=== PATIENT | male | born 1945 | race Caucasian/White ===

== ENCOUNTER 2016-10-27 06:35 | Inpatient (IN) | payer OTHER ==
[2016-10-21 11:31] VITALS: BMI 31.0
--- NOTE | 2016-10-21 12:19 | PAT Medication Instructions ---
Service Date Oct 21, 2016. Current Home Medication List Alfuzosin Hcl (Uroxatral), 10 MG PO QPM Aspirin (Aspirin Ec), 81 MG PO QPM Atorvastatin (Lipitor), 20 MG PO QPM Coenzyme Q10 (Ubidecarenone) (Co Q10), 2 CAP PO QAM Fish Oil (Laurel-3), 1 TAB PO BID Levothyroxine Sodium (Levothyroxine Sodium), 1 TAB PO QPM Lisinopril (Zestril), 20 MG PO QPM Metoprolol Tartrate (Lopressor) (Lopressor), 12.5 MGPE PO BID Multivitamin (Multivitamin), 1 TAB PO QAM Ocuvite Preservision (Ocuvite Preservision), 1 TAB PO BID Tramadol (Ultram), 50 MG PO Q8H PRN for Pain Medication Instructions For Your Scheduled Surgery - Hold the following medications as of 10/21/16: Coenzyme Q10 (Ubidecarenone) (Co Q10), 2 CAP PO QAM Fish Oil (Laurel-3), 1 TAB PO BID - Hold the following medications 24 hours prior to surgery: Lisinopril (Zestril), 20 MG PO QPM - Hold the following medications the morning of surgery: Multivitamin (Multivitamin), 1 TAB PO QAM Ocuvite Preservision (Ocuvite Preservision), 1 TAB PO BID - Take the following medications the morning of surgery with a sip of water OTHERWISE NOTHING TO EAT OR DRINK AFTER MIDNIGHT: Tramadol (Ultram), 50 MG PO Q8H PRN for Pain (may take if needed up to 4 hours prior to surgery) Metoprolol Tartrate (Lopressor) (Lopressor), 12.5 MGPE PO BID - Take the following medications as scheduled the night before surgery: Alfuzosin Hcl (Uroxatral), 10 MG PO QPM Aspirin (Aspirin Ec), 81 MG PO QPM Atorvastatin (Lipitor), 20 MG PO QPM Levothyroxine Sodium (Levothyroxine Sodium), 1 TAB PO QPM Tramadol (Ultram), 50 MG PO Q8H PRN for Pain Metoprolol Tartrate (Lopressor) (Lopressor), 12.5 MGPE PO BID Ocuvite Preservision (Ocuvite Preservision), 1 TAB PO BID If you have any questions please call us at [phone] or [phone] or [phone]
--- NOTE | 2016-10-21 12:58 | DIAGNOSTIC IMAGING REPORT ---
CHEST 2 VIEWS ROUTINE CLINICAL HISTORY: 71 years-old Male presenting with preoperative evaluation. TECHNIQUE: PA and lateral views of the chest were obtained. COMPARISON: 06/06/2012. FINDINGS: Cardiomediastinal silhouette normal. Mild atherosclerosis of the aortic arch noted. No focal infiltrate. No pleural effusion or pneumothorax. Sclerosis of the lateral aspect of the right humeral head may be degenerative in etiology and was likely present on the prior exam. IMPRESSION: 1. No acute cardiopulmonary disease. Electronically signed by: Shaun Hester 10/21/2016 12:57 PM Dictated Date/Time: 10/21/2016 12:55 PM
[2016-10-21 13:36] LABS: BASO % 0.2 %; BASO ABS # 0.02 K/uL (0-0.2); COMPLETE YES; EOS % 2.1 %; HEMATOCRIT 46.3 % (42-52); IG% 0.4 %; LYMPH % 21.2 %; LYMPH ABS # 1.81 K/uL (1.2-3.4); MEAN CELL VOLUME 91.1 fL (80-100); MEAN CORPUSCULAR HEMOGLOBIN 29.9 pg (25-34); MEAN CORPUSCULAR HGB CONC 32.8 g/dl (32-36); MEAN PLATELET VOLUME 10.5 fL (7.4-10.4); MONO % 9.7 %; NEUT % 66.4 %; PLATELET COUNT 225 K/uL (130-400); RED BLOOD COUNT 5.08 M/uL (4.7-6.1); WHITE BLOOD COUNT 8.55 K/uL (4.8-10.8)
[2016-10-21 13:49] LABS: PARTIAL THROMBOPLASTIN RATIO 1.1; PROTHROMBIN TIME (PATIENT) 10.4 SECONDS (9.0-12.0)
[2016-10-21 13:55] LABS: ESTIMATED AVERAGE GLUCOSE 128 mg/dl; HA1C FLAG Normal (Normal)
[2016-10-21 13:56] LABS: URINE APPEARANCE CLEAR (CLEAR); URINE BILIRUBIN NEG (NEG); URINE COLOR YELLOW; URINE NITRITE NEG (NEG); URINE SPECIFIC GRAVITY 1.011 (1.000-1.030); UROBILINOGEN NEG (NEG); ZZUR CULT IF INDIC CLEAN CATCH NO
[2016-10-21 14:01] LABS: MANUAL MICROSCOPIC REQUIRED? NO; REVIEW REQ? NO
[2016-10-21 14:19] LABS: BUN/CREATININE RATIO 15.1 (10-20); CALCIUM 9.5 mg/dl (8.5-10.1); CREATININE 1.4 mg/dl (0.60-1.40); POTASSIUM 4.9 mmol/L (3.5-5.1)
--- NOTE | 2016-10-26 20:51 | History and Physical ---
History & Physical Date & Time of Service: Oct 26, 2016 at 20:45 Chief Complaint: Left Shoulder Rotator Cuff Arthropathy Primary Care Physician: Mario Lozano III, M.D. History of Present Illness Source: patient Past Medical/Surgical History Medical Problems: (1) Benign hypertension Status: Chronic (2) Chronic kidney disease stage 3 Status: Chronic (3) Generalized osteoarthritis Status: Chronic Social History Smoking Status: Former Smoker Alcohol Use: none Marital Status: Immunizations History of Influenza Vaccine: Yes Influenza Vaccine Date: Feb 04, 2012 History of Tetanus Vaccine?: No History of Pneumococcal: No History of Hepatitis B Vaccine: Yes Multi-Drug Resistant Organisms History of MDRO: No Allergies Coded Allergies: Morphine (Verified Allergy, Unknown, 10/21/16) Home Medications Scheduled Alfuzosin Hcl (Uroxatral), 10 MG PO QPM Aspirin (Aspirin Ec), 81 MG PO QPM Atorvastatin (Lipitor), 20 MG PO QPM Coenzyme Q10 (Ubidecarenone) (Co Q10), 2 CAP PO QAM Fish Oil ([place]-3), 1 TAB PO BID Levothyroxine Sodium (Levothyroxine Sodium), 1 TAB PO QPM Lisinopril (Zestril), 20 MG PO QPM Metoprolol Tartrate (Lopressor) (Lopressor), 12.5 MGPE PO BID Multivitamin (Multivitamin), 1 TAB PO QAM Ocuvite Preservision (Ocuvite Preservision), 1 TAB PO BID Scheduled PRN Tramadol (Ultram), 50 MG PO Q8H PRN for Pain Review of Systems Musculoskeletal: + joint pain, + muscle pain Physical Exam General Appearance: WD/WN, no apparent distress Head: normocephalic, atraumatic Eyes: normal inspection, PERRL, EOMI Respiratory/Chest: chest non-tender, lungs clear Cardiovascular: regular rate, rhythm Abdomen/GI: normal bowel sounds, non tender left shoulder decreased ROM, and 3/5 strength. + GH OA. Impression Assessment and Plan Left shoulder RC arthrapathy Advanced Directives Existing Living Will: No Existing Power of Deep Fat Cook Fry: No
--- NOTE | 2016-10-26 21:21 | History and Physical ---
History & Physical Date & Time of Service: Oct 26, 2016 at 21:17 Chief Complaint: Left Shoulder Rotator Cuff Arthropathy Primary Care Physician: Mario Lozano III, M.D. History of Present Illness Source: patient Chronic left shoulder pain, Hx of RCR repair in the past that has failed. MRI confirmed. Social History Smoking Status: Former Smoker Alcohol Use: none Marital Status: Immunizations History of Influenza Vaccine: Yes Influenza Vaccine Date: Feb 04, 2012 History of Tetanus Vaccine?: No History of Pneumococcal: No History of Hepatitis B Vaccine: Yes Multi-Drug Resistant Organisms History of MDRO: No Allergies Coded Allergies: Morphine (Verified Allergy, Unknown, 10/21/16) Home Medications Scheduled Alfuzosin Hcl (Uroxatral), 10 MG PO QPM Aspirin (Aspirin Ec), 81 MG PO QPM Atorvastatin (Lipitor), 20 MG PO QPM Coenzyme Q10 (Ubidecarenone) (Co Q10), 2 CAP PO QAM Fish Oil ([place]-3), 1 TAB PO BID Levothyroxine Sodium (Levothyroxine Sodium), 1 TAB PO QPM Lisinopril (Zestril), 20 MG PO QPM Metoprolol Tartrate (Lopressor) (Lopressor), 12.5 MGPE PO BID Multivitamin (Multivitamin), 1 TAB PO QAM Ocuvite Preservision (Ocuvite Preservision), 1 TAB PO BID Scheduled PRN Tramadol (Ultram), 50 MG PO Q8H PRN for Pain Review of Systems Musculoskeletal: + joint pain, + muscle pain Physical Exam General Appearance: WD/WN, no apparent distress Head: normocephalic, atraumatic Eyes: normal inspection, PERRL, EOMI Respiratory/Chest: chest non-tender, lungs clear Cardiovascular: regular rate, rhythm Abdomen/GI: normal bowel sounds, non tender left shoulder decreased ROM, and 3/5 strength. + GH OA. Impression Assessment and Plan Left shoulder RC arthrapathy Medical Problems: (1) Benign hypertension Status: Chronic (2) Chronic kidney disease stage 3 Status: Chronic (3) Generalized osteoarthritis Status: Chronic Advanced Directives Existing Living Will: No Existing Power of Commander Internal Affairs: No
[~2016-10-27] VITALS: Ht 180.3 cm; Wt 102.9 kg
[~2016-10-27 06:35] MED LIST: ACETAMINOPHEN 500 MG TAB PO SCH; ALFU10TA30 PO; ASPI81TA28 PO; ATOR-22 PO; CEFAZOLIN 2000 MG/60 ML D5W 60 ML IV SCH; COEN1CAP28 PO; CeleBREX 200 MG CAP PO SCH; DEXAMETHASONE 4 MG TAB PO SCH; FAMOTIDINE 20 MG TAB PO SCH; GABAPENTIN 300 MG CAP PO SCH; LACTATED RINGER'S 1000ML 1,000 ML IV SCH; LEVO125T4 PO; LISI-725 PO; METO25TA56 PO; METOCLOPRAMIDE HCL 10 MG TAB PO SCH; MULT-190 PO; MULT-506 PO; OMEG10007 PO; TRAM-10 PO
[2016-10-27] MEDS ORDERED: ROPIVACAINE 0.5% 5 MG/ML 30 ML VIAL ONE (07:01)
[2016-10-27] MEDS ORDERED: BUPIVACAINE/EPINEPHRINE 0.25% 1:200,000 30 ML VIAL ONE (07:01)
[2016-10-27] MEDS ORDERED: CLONIDINE HCL 100 MCG/ML SYRINGE ONE (07:02)
[2016-10-27 07:13] VITALS: BP 169/101; PULSE 58; TEMP 36.7; O2SAT 96; Ht 180.3 cm; Wt 102.9 kg
[2016-10-27] MEDS: LACTATED RINGER'S 1000ML IV SCH ×2 (08:02→11:10)
[2016-10-27] MEDS ORDERED: FLUMAZENIL 0.1 MG/1 ML 10 ML VIAL IV PRN (08:15)
[2016-10-27] MEDS ORDERED: MEPERIDINE HCL 25 MG/ML CARP IV PRN (08:15)
[2016-10-27] MEDS ORDERED: PHENYLEPHRINE 100MCG/ML 5ML SYR IV PRN (08:15)
[2016-10-27] MEDS ORDERED: FENTANYL CITRATE INJ 50 MCG/1 ML 2 ML VIAL IV PRN (08:15)
[2016-10-27] MEDS ORDERED: EpHEDrine SULFATE INJ 50 MG/ML AMP IV PRN (08:15)
[2016-10-27] MEDS ORDERED: LABETALOL HCL IV 5 MG/ML 20ML IV PRN (08:15)
[2016-10-27] MEDS ORDERED: ONDANSETRON INJ 2 MG/ML 2 ML VIAL IV PRN ×2 (08:15→14:15)
[2016-10-27] MEDS ORDERED: HYDROmorphone INJ 2 MG/ML SYR/VIAL IV PRN (08:15)
[2016-10-27] MEDS ORDERED: NALOXONE HCL 0.4 MG/1 ML VIAL/CARP IV PRN ×2 (08:15→14:15)
[2016-10-27] MEDS ORDERED: ATROPINE SULFATE 0.1 MG/ML 5ML SYR IV PRN (08:15)
[2016-10-27] MEDS ORDERED: NEOSTIGMINE METHYLSULFATE 5 MG/5 ML SYR ONE (08:27)
[2016-10-27] MEDS ORDERED: ROCURONIUM BROMIDE 10 MG/ML 5 ML VIAL ONE ×2 (08:27→16:06)
[2016-10-27] MEDS ORDERED: PROPOFOL IV EMULSION 10 MG/ML 20 ML VIAL IV ONE (08:27)
[2016-10-27] MEDS ORDERED: MIDAZOLAM HCL 1 MG/ML 2ML VIAL ONE (08:27)
[2016-10-27] MEDS ORDERED: ONDANSETRON INJ 2 MG/ML 2 ML VIAL ONE (08:27)
[2016-10-27] MEDS ORDERED: GLYCOPYRROLATE INJ 0.2 MG/ML VIAL ONE (08:27)
[2016-10-27] MEDS ORDERED: LIDOCAINE HCL 2% 2 ML VIAL (20MG/ML) ONE (08:27)
[2016-10-27] MEDS ORDERED: DEXAMETHASONE SOD INJ 4 MG/ML VIAL ONE (08:27)
[2016-10-27] MEDS ORDERED: FENTANYL CITRATE INJ 50 MCG/1 ML 2 ML VIAL ONE (08:28)
--- NOTE | 2016-10-27 10:26 | History & Physical Bridge Note ---
H&P Re-Evaluation Bridge Note: I have examined the patient, reviewed the History & Physical and in the interval since the performance of the History & Physical I have noted the following changes of clinical significance: No changes noted, plan is for left reversed total shoulder arthroplasty for chronic rotator cuff tear arthropathy and non repairable rotator cuff tear.
[2016-10-27] MEDS ORDERED: BACITRACIN 50000 UNIT VIAL ONE (11:21)
[2016-10-27] MEDS ORDERED: EpHEDrine SULFATE INJ 50 MG/ML AMP ONE ×2 (12:02→17:04)
[2016-10-27] MEDS ORDERED: PHENYLEPHRINE HCL INJ 10 MG/ML VIAL ONE (12:02)
[2016-10-27] MEDS ORDERED: BISACODYL 10 MG SUPP PR PRN (14:15)
[2016-10-27] MEDS ORDERED: MAGNESIUM HYDROXIDE SUSP 30 ML UDC PO PRN (14:15)
[2016-10-27] MEDS ORDERED: ZOLPIDEM TARTRATE 5 MG TAB PO PRN (14:15)
[2016-10-27] MEDS ORDERED: SOD PHOSPHATE/SOD BIPHOSPHATE ENEMA 132 ML BTL PR PRN (14:15)
--- NOTE | 2016-10-27 14:33 | [facility] Operative Report ---
Operative Report Operative Date Oct 27, 2016. 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 Edilberto Frank Enterprise Infrastructure Architect Surgeon(s) Kristofer Smith PA-C Estimated Blood Loss 50ml Findings Chronic non repairable rotator cuff tear, prior rotator cuff repair with some of the anterior and posterior aspect of the repair being intact still, anterior dislocation biceps tendon under upper subscapularis tendon tear with marked proximal tendinopathy of the biceps tendon. Specimens A: Left humeral head Drains 2 Hemovac Complication(s) None Disposition Recovery Room / PACU Indications Chronic left shoulder pain rotator cuff arthropathy failed conservative management Description of Procedure The patient was taken to the operating room and anesthetized under regional block and general anesthetic. The patient was positioned on the operating table in a 30 beach chair position with a towel roll under the medial border of the left scapula. The arm was draped free to be able to manipulate the shoulder as needed. The left upper extremity was prepped and draped in usual sterile fashion. Exam demonstrated full passive range of motion old scars healed from prior arthroscopic surgery. An anterior deltopectoral approach was performed. A longitudinal incision was made in the deltopectoral interval. The skin was incised. Subcutaneous flaps were elevated off the fascia. The cephalic vein was dissected out and retracted lateral with the deltoid. The clavipectoral fascia was divided at the lateral margin of the conjoined tendon and extended up to the CA ligament. The following findings were noted: The rotator cuff was torn in the mid section with a strip of anterior supraspinatus tendon still intact and about 50% of the infraspinatus was intact as well as the teres minor. The remainder of the rotator cuff tear was non repairable. There was some arthropathy of the superior head of the humerus where it articulated with the subacromial space. There was still good articular surface on the glenoid and humeral head surfaces otherwise there was an upper subscapularis tendon tear partial tear of the deep fibers with anterior dislocation of the biceps tendon under that tear and marked widening of the biceps and tendinopathy of the biceps in the proximal section up to its attachment at the superior glenoid.. The upper centimeter of the pectoralis was released for inferior exposure. The biceps tendon was tenodesed to the pectoralis tendon with #2 FiberWire. The proximal biceps was resected. The subscapularis tendon was taken down off the lesser tuberosity using a subperiosteal dissection. A #1 Vicryl traction suture was placed into the free end of the subscapularis tendon and capsule. The subscapular muscle fibers were split longitudinally at the level of the circumflex vessels. The circumflex vessels were identified and tied off with silk ties and divided laterally. A Kitner elevator was used to free up the inferior fibers of the subscapularis off of the capsule. The axillary nerve was identified with a tug test and protected with a blunt Lulu retractor between the nerve and the capsule. The capsule was divided with Ravi scissors down to the glenoid released off the anterior glenoid and the rotator interval was released to meet the capsular release and a 360 release of the subscapularis was accomplished. A Fukuda retractor was placed into the joint retracting the humeral head posterior. Glenoid findings demonstrated some degenerative changes of the labrum but good articular surface and no deformity of the glenoid. The labrum and biceps tendon was resected. An anterior- inferior and posterior inferior capsular release were performed with electrocautery and a Pandey elevator on bone with the nerve protected inferiorly by the retractor. Attention was then taken to the humeral preparation. The cutting guide was placed into the humeral head. It was positioned at 20 of retroversion. Oscillating saw was used to resect the humeral head giving the cut above the level of the posterior rotator cuff insertion site. The humerus was then retracted posterior to the glenoid. The glenoid was sized for a 29 mm baseplate using the Tornier reverse shoulder system.. The guide for the baseplate was positioned in a 10 inferior tilt and the central drill hole was made. The reamer for the 29 mm baseplate was used. The central drill was widened for the peg. The 29 mm hydroxyapatite-coated baseplate was impacted into position. The plate was transfixed with superior and inferior locking screws and anterior and posterior compression screws with stable fixation. The fan reamer was used for the 36 mm millimeter glenoid sphere with +2 mm inferior offset. After irrigation the glenoid sphere was impacted onto the baseplate and the screw was tightened. Fixation was assessed is stable. Humeral preparation was then performed. A centralizing awl was used followed by broaches up to a size 4 stem. The 4 stem had the appropriate fit and fill although distally we could've gone to a 5 but proximally metaphyseal bone was dense only excepting a 4.. A high offset +0 reversed tray was then placed. It was rotated into appropriate position. A trial reduction was performed. A 6 mm trial insert demonstrated good stability and no shuck. The trials were removed. 3 drill holes are made into the harder bone in the bicipital groove area and 3 #5 FiberWire sutures were placed transosseously. The canal was irrigated with antibiotic solution with bacitracin. The final component was assembled. The final component was +6 mm 36 diameter reversed insert +0 high offset baseplate and size 4B long stem.. This was then impacted into the humerus with a tight press-fit. It was reduced to the glenoid sphere. Stability was verified. Subscapularis was repaired with the #5 FiberWire sutures using Giorgi-Rosalio suture technique. Lateral row soft tissue repair was performed with #2 FiberWire [id number] sutures. The pectoralis was repaired with #2 FiberWire [id number] sutures reinforcing the biceps tendon tenodesis. The arm was taken through a range of motion which demonstrated 160 forward elevation 100 abduction 60 external rotation without tension on the repair. The implant was stable through the range of motion tested. The wound was copiously irrigated. 2 Hemovac drains were placed. The deltopectoral interval was closed with [id number] #1 Vicryl sutures. The subcutaneous tissues were closed with 2-0 Vicryl sutures. The skin was closed with adam. Sterile dressings were applied and a shoulder immobilizer. Kristofer Smith, My physician certified surgical assistant assisted in the procedure to the entire procedure including patient positioning arm positioning prepping and draping soft tissue retraction instrument management suture management and performed the subcutaneous and skin closure and will participate in the postoperative care of the patient. I attest to the content of the Intraoperative Record and any orders documented therein. Any exceptions are noted below.
--- NOTE | 2016-10-27 14:44 | DIAGNOSTIC IMAGING REPORT ---
LEFT SHOULDER MIN 2 VIEWS ROUTINE CLINICAL HISTORY: Postoperative evaluation of the left shoulder. COMPARISON: None FINDINGS: Alignment of the left shoulder arthroplasty is anatomic. There is no fracture or unexpected radiopaque foreign body. Skin adam and drains are present. IMPRESSION: Expected findings following left shoulder arthroplasty. Electronically signed by: Jann Bynum M.D. 10/27/2016 2:43 PM Dictated Date/Time: 10/27/2016 2:42 PM
--- NOTE | 2016-10-27 15:14 | Anesthesiology Progress Note ---
Anesthesia Post Op Note Date & Time Oct 27, 2016 at 15:14 Vital Signs Pain Intensity: 0 Vital Signs Past 12 Hours Date Time Temp Pulse Resp B/P (MAP) Pulse Ox O2 Delivery O2 Flow Rate FiO2 10/27/16 14:59 36.3 10/27/16 14:58 87 23 10/27/16 14:58 89 23 94 10/27/16 14:56 135/88 10/27/16 14:53 80 15 95 10/27/16 14:53 80 15 10/27/16 14:51 138/79 10/27/16 14:48 84 16 10/27/16 14:48 84 16 95 10/27/16 14:47 86 20 94 10/27/16 14:47 86 20 10/27/16 14:46 147/91 10/27/16 14:42 83 15 94 10/27/16 14:42 83 15 10/27/16 14:41 134/89 10/27/16 14:37 82 13 95 10/27/16 14:37 82 13 10/27/16 14:36 141/78 10/27/16 14:33 82 20 97 10/27/16 14:33 82 20 10/27/16 14:31 139/96 10/27/16 14:28 83 15 10/27/16 14:28 83 15 97 10/27/16 14:27 131/99 10/27/16 14:23 82 14 97 10/27/16 14:23 82 14 10/27/16 14:22 86 15 96 10/27/16 14:22 87 15 10/27/16 14:21 158/93 10/27/16 14:17 85 14 96 10/27/16 14:17 85 14 10/27/16 14:16 155/97 10/27/16 14:14 166/89 10/27/16 14:13 159/106 10/27/16 14:12 36.2 86 16 166/84 96 Mask 10 10/27/16 14:12 93 16 10/27/16 14:12 93 16 94 10/27/16 11:05 58 16 119/79 (92) 96 Oxymask 8 10/27/16 07:13 36.7 58 20 169/101 96 Room Air Notes Mental Status: alert / awake / arousable, participated in evaluation Pt Amnestic to Procedure: Yes Nausea / Vomiting: adequately controlled Pain: adequately controlled Airway Patency, RR, SpO2: stable & adequate BP & HR: stable & adequate Hydration State: stable & adequate Anesthetic Complications: no major complications apparent
[2016-10-27 16:00] VITALS: BP 112/73; PULSE 89; TEMP 36.5; O2SAT 96
[2016-10-27 16:30] VITALS: BP 115/73; PULSE 87; TEMP 36.5; O2SAT 91
[2016-10-27 17:30] VITALS: BP 110/69; PULSE 87; TEMP 36.6; O2SAT 92
[2016-10-27] MEDS: D5W AND 1/2NSS + 20MEQ KCL 1,000 ML IV SCH ×2 (17:33→23:54)
[2016-10-27] MEDS ORDERED: PNEUMOCOCCAL POLYSACCHARIDES 25 MCG/0.5 ML VIAL/SYR IM. ONE (18:00)
[2016-10-27] MEDS ORDERED: PNEUMOCOCCAL ADMINISTRATION CHARGE ONE (18:00)
[2016-10-27 19:00] VITALS: BP 131/86; PULSE 90; TEMP 36.7; O2SAT 94
--- NOTE | 2016-10-27 19:20 | Medical Consult ---
Consultation Date of Consultation: Oct 27, 2016. Attending Physician: Edilberto Frank M.D. History of Present Illness 71 y/o M HTN, HPL, BPH, CKD 2-3, Early DM, L shoulder arthropathy and biceps tendonitis - post op left shoulder reversed total shoulder arthroplasty including biceps tenodesis. Pt is recovering well following surgery, Denies CP , SOB, N/V, light head. Past Medical/Surgical History 1) HTN 2) HPL 3) BPH 4) OA 5) CKD 2-3 6) Early DM per records - A1C 6.1 - not treated 7) Hypothyroid Family History Reviewed , noncontributory Social History Smoking Status: Former Smoker Alcohol Use: none Marital Status: Allergies Coded Allergies: Morphine (Verified Allergy, Intermediate, "worms under my skin" , arm red at iv site after injection, 10/27/16) Current Inpatient Medications Current Inpatient Medications Medications (Trade) Dose Ordered Sig/Melodie Route Start Time Stop Time Status Last Admin Dose Admin Lactated Ringer's 1,000 ml @ 15 mls/hr Q24H IV 10/27/16 06:00 10/28/16 05:59 Lactated Ringer's 1,000 ml @ 60 mls/hr [id number] IV 10/27/16 06:00 10/27/16 22:39 10/27/16 11:10 60 MLS/HR Alfuzosin HCl (Uroxatral Tab) 10 mg QPM PO 10/27/16 21:00 11/26/16 20:59 Aspirin (Ecotrin Tab) 81 mg QPM PO 10/27/16 21:00 11/26/16 20:59 Atorvastatin Calcium (Lipitor Tab) 20 mg QPM PO 10/27/16 21:00 11/26/16 20:59 Levothyroxine Sodium (Synthroid Tab) 125 mcg DAILYBB PO 10/28/16 06:00 11/27/16 05:59 Lisinopril (Zestril Tab) 20 mg QPM PO 10/27/16 21:00 11/26/16 20:59 Metoprolol Tartrate (Lopressor Tab) 12.5 mg BID PO 10/27/16 21:00 11/26/16 20:59 Multivitamins (Multivitamin Tab) 1 tab QAM PO 10/28/16 09:00 11/27/16 08:59 Multivitamins/ Minerals (Multivitamin W/ Minerals Tab) 1 tab BID PO 10/27/16 21:00 11/26/16 20:59 Diphenhydramine HCl (Benadryl Cap) 25 mg Q8 PRN PO 10/27/16 14:15 11/26/16 14:14 Zolpidem Tartrate (Ambien Tab) 5 mg HSZ PRN PO 10/27/16 14:15 11/26/16 14:14 Ondansetron HCl (Zofran Inj) 4 mg Q6H PRN IV 10/27/16 14:15 11/26/16 14:14 Pantoprazole Sodium (Protonix Tab) 40 mg QAM PO 10/28/16 09:00 11/27/16 08:59 Potassium Chloride/Dextrose/ Sod Cl 1,000 ml @ 100 mls/hr Q10H IV 10/27/16 14:06 10/28/16 14:00 10/27/16 17:33 100 MLS/HR Oxycodone HCl (Roxicodone Immediate Rel Tab) `1-2 TABS FOR PAIN `1 TAB... Q4H PRN PO 10/27/16 14:15 11/10/16 14:14 Oxycodone HCl (Oxycontin Tab) 10 mg Q12 PO 10/27/16 21:00 11/10/16 20:59 Acetaminophen (Tylenol Tab) 1,000 mg Q8 PO 10/27/16 22:00 11/26/16 21:59 Naloxone HCl (Narcan Inj) 0.1 mg Q2M PRN IV 10/27/16 14:15 11/26/16 14:14 Magnesium Hydroxide (Milk Of Magnesia Susp) 30 ml Q6H PRN PO 10/27/16 14:15 11/26/16 14:14 Bisacodyl (Dulcolax Supp) 10 mg DAILY PRN TN 10/27/16 14:15 11/26/16 14:14 Sodium Biphosphate/ Sodium Phosphate (Fleet Enema) 132 ml DAILY PRN TN 10/27/16 14:15 11/26/16 14:14 Docusate Sodium (coLACE CAP) 100 mg BID PO 10/27/16 21:00 11/26/16 20:59 Cefazolin Sodium 2000 mg/Dextrose 60 ml @ 100 mls/hr Q8H IV 10/27/16 20:00 10/28/16 04:35 Hydromorphone HCl (Dilaudid Inj) 0.5 mg Q3H PRN IV 10/27/16 14:15 11/10/16 14:14 Review of Systems Constitutional: No fever, No chills, No sweats Eyes: No worsening of vision ENT: No hearing loss, No unusual epistaxis, No nasal symptoms Respiratory: No cough, No sputum, No wheezing Cardiovascular: No chest pain, No orthopnea, No PND Abdomen: No pain, No nausea, No vomiting Musculoskeletal: + joint pain, + muscle pain (post-op - chronic shoulder/arm pain L) Genitourinary - Male: No hematuria, No dysuria, No urinary frequency, No urinary urgency Neurologic: No memory loss, No paralysis, No weakness Psychiatric: No depression symptoms Endocrine: No fatigue Hematologic / Lymphatic: No abnormal bleeding/bruising Integumentary: No rash Allergic / Immunologic: No environmental allergies Physical Exam Date Time Temp Pulse Resp B/P (MAP) Pulse Ox O2 Delivery O2 Flow Rate FiO2 10/27/16 17:30 36.6 87 18 110/69 (83) 92 Room Air 10/27/16 16:30 36.5 87 18 115/73 (87) 91 Room Air 10/27/16 16:00 36.5 89 18 112/73 (86) 96 Nasal Cannula 1.0 10/27/16 16:00 96 Nasal Cannula 2.0 10/27/16 15:45 96 Nasal Cannula 2.0 10/27/16 15:16 125/79 10/27/16 15:14 84 16 94 10/27/16 15:14 84 16 10/27/16 15:09 80 16 94 10/27/16 15:09 80 16 10/27/16 15:07 118/75 10/27/16 15:04 82 17 94 10/27/16 15:04 83 17 10/27/16 15:02 121/83 10/27/16 14:59 82 22 10/27/16 14:59 83 22 93 10/27/16 14:59 36.3 10/27/16 14:58 87 23 10/27/16 14:58 89 23 94 10/27/16 14:56 135/88 10/27/16 14:53 80 15 95 10/27/16 14:53 80 15 10/27/16 14:51 138/79 10/27/16 14:48 84 16 10/27/16 14:48 84 16 95 10/27/16 14:47 86 20 94 10/27/16 14:47 86 20 10/27/16 14:46 147/91 10/27/16 14:42 83 15 94 10/27/16 14:42 83 15 10/27/16 14:41 134/89 10/27/16 14:37 82 13 95 10/27/16 14:37 82 13 10/27/16 14:36 141/78 10/27/16 14:33 82 20 97 10/27/16 14:33 82 20 10/27/16 14:31 139/96 10/27/16 14:28 83 15 10/27/16 14:28 83 15 97 10/27/16 14:27 131/99 10/27/16 14:23 82 14 97 10/27/16 14:23 82 14 10/27/16 14:22 86 15 96 10/27/16 14:22 87 15 10/27/16 14:21 158/93 10/27/16 14:17 85 14 96 10/27/16 14:17 85 14 10/27/16 14:16 155/97 10/27/16 14:14 166/89 10/27/16 14:13 159/106 10/27/16 14:12 36.2 86 16 166/84 96 Mask 10 10/27/16 14:12 93 16 10/27/16 14:12 93 16 94 10/27/16 11:05 58 16 119/79 (92) 96 Oxymask 8 10/27/16 07:13 36.7 58 20 169/101 96 Room Air General Appearance: WD/WN, no apparent distress Head: normocephalic, atraumatic Eyes: normal inspection ENT: normal ENT inspection, pharynx normal Neck: supple, no adenopathy, thyroid normal, no JVD Respiratory/Chest: chest non-tender, lungs clear, normal breath sounds Cardiovascular: regular rate, rhythm, no edema, no gallop Abdomen/GI: normal bowel sounds, non tender, soft Back: normal inspection, no CVA tenderness, no muscle spasm, normal range of motion Extremities/Musculoskelatal: normal inspection, no calf tenderness, normal capillary refill, no pedal edema, + pertinent finding (Pulses + upper extrems) Neurologic/Psych: sock boarder II-XII nml as tested, no motor/sensory deficits, alert, oriented x 3 Skin: normal color, warm/dry, no rash Assessment & Plan 71 y/o M HTN, HPL, BPH, CKD 2-3, Early DM, L shoulder arthropathy and biceps tendonitis - post op left shoulder reversed total shoulder arthroplasty including biceps tenodesis. Pt is recovering well following surgery, Denies CP , SOB, N/V, light head. 1) Post op - IVF, pain control - start DVT prophylaxis if remains in hospital > 1 night - PT/OT to discretion of ortho. 2) HTN - Restart BRETT AM based on labs , assessment 3) HPL - cont Statin 4) BPH - Uroxatral 5) CKD - recheck creat AM 6) DM or preDM - borderline A1C - would keep on consistent carb, heart-healthy diet - may benefit from Metformin but can f/u as outpt Total time for this admit including review of labs, meds, ortho notes - discussion with pt - 25 min
[2016-10-27] MEDS: OXYCODONE HCL IR 5 MG TAB (IMMEDIATE RELEASE) PO PRN (19:23)
[2016-10-27] MEDS: CEFAZOLIN IV 2,000 MG in DEXTROSE 5% 50ML 50 ML IV SCH (20:52)
[2016-10-27] MEDS: ATORVASTATIN 20 MG TAB PO SCH (21:06)
[2016-10-27] MEDS: LISINOPRIL 20 MG TAB PO SCH (21:06)
[2016-10-27] MEDS: DOCUSATE SODIUM 100 MG CAP PO SCH (21:06)
[2016-10-27] MEDS: ASPIRIN 81 MG ECTAB PO SCH (21:07)
[2016-10-27] MEDS: OXYCODONE HCL 10 MG TABCR (OXYCONTIN) PO SCH (21:07)
[2016-10-27] MEDS: METOPROLOL TARTRATE 25 MG TAB PO SCH (21:07)
[2016-10-27] MEDS: CEROVITE ADV FORMULA TAB PO SCH (21:07)
[2016-10-27] MEDS: ALFUZosin TAB 10 MG TAB PO SCH (21:07)
[2016-10-27] MEDS: ACETAMINOPHEN 500 MG TAB PO SCH (21:08)
[2016-10-27] MEDS ORDERED: COUGH DROP (SUGAR FREE) LOZ 24 LOZ/1 BOX PO PRN (21:30)
[2016-10-27] MEDS ORDERED: NURSING DECISION MEDICATION ORDER SCH (21:30)
[2016-10-27 23:03] VITALS: BP 133/80; PULSE 91; TEMP 36.9; O2SAT 96
[2016-10-28] VITALS (7 sets, daily range): BP systolic 108–156; BP diastolic 52–89; PULSE 54–78; TEMP 36.5–36.9; O2SAT 91–97
[2016-10-28] MEDS: CEFAZOLIN IV 2,000 MG in DEXTROSE 5% 50ML 50 ML IV SCH (03:42)
[2016-10-28] MEDS: OXYCODONE HCL IR 5 MG TAB (IMMEDIATE RELEASE) PO PRN ×4 (03:42→21:48)
[2016-10-28] MEDS: LEVOTHYROXINE 125 MCG TAB PO SCH (05:48)
[2016-10-28] MEDS: ACETAMINOPHEN 500 MG TAB PO SCH ×3 (05:49→21:49)
[2016-10-28 07:10] LABS: HEMATOCRIT 37.6 % (42-52); MEAN CELL VOLUME 90.4 fL (80-100); MEAN CORPUSCULAR HGB CONC 34.3 g/dl (32-36); MEAN PLATELET VOLUME 9.7 fL (7.4-10.4); PLATELET COUNT 196 K/uL (130-400); RED BLOOD COUNT 4.16 M/uL (4.7-6.1); WHITE BLOOD COUNT 13.64 K/uL (4.8-10.8)
[2016-10-28 07:42] LABS: BUN/CREATININE RATIO 14.4 (10-20); CALCIUM 8.6 mg/dl (8.5-10.1); CREATININE 1.4 mg/dl (0.60-1.40); POTASSIUM 4.9 mmol/L (3.5-5.1)
--- NOTE | 2016-10-28 07:51 | Anesthesiology Progress Note ---
Anesthesia Post Op Note Date & Time Oct 28, 2016 at 07:51 Vital Signs Vital Signs Past 12 Hours Date Time Temp Pulse Resp B/P (MAP) Pulse Ox O2 Delivery O2 Flow Rate FiO2 10/28/16 03:05 36.8 78 20 108/77 (87) 95 Room Air 10/28/16 00:00 Room Air 10/27/16 23:03 36.9 91 16 133/80 (97) 96 Room Air Notes Mental Status: alert / awake / arousable, participated in evaluation Pt Amnestic to Procedure: Yes Nausea / Vomiting: adequately controlled Pain: adequately controlled Airway Patency, RR, SpO2: stable & adequate BP & HR: stable & adequate Hydration State: stable & adequate Anesthetic Complications: no major complications apparent
[2016-10-28] MEDS: OXYCODONE HCL 10 MG TABCR (OXYCONTIN) PO SCH ×2 (08:28→21:50)
[2016-10-28] MEDS: PANTOprazole SOD 40 MG TAB PO SCH (08:28)
[2016-10-28] MEDS: METOPROLOL TARTRATE 25 MG TAB PO SCH ×2 (08:29→21:00)
[2016-10-28] MEDS: CEROVITE ADV FORMULA TAB PO SCH ×2 (08:29→21:49)
[2016-10-28] MEDS: DOCUSATE SODIUM 100 MG CAP PO SCH ×2 (08:30→21:50)
[2016-10-28] MEDS: MULTIVITAMIN TAB PO SCH (08:31)
--- NOTE | 2016-10-28 08:45 | Orthopedic Progress Note ---
Orthopedic Progress Note Date of Service Oct 28, 2016. Subjective Post OP Day: 1 Reports: feeling well, pain controlled w PO medications, Denies: complaints, chest pain, SOB, nausea / vomiting, light headedness, calf pain Objective N/V intact, capillary refill less than 2 sec., dressing C/D/I, A&O x3 Sling in tact, fingers mobile. Date Time Temp Pulse Resp B/P (MAP) Pulse Ox O2 Delivery O2 Flow Rate FiO2 10/28/16 03:05 36.8 78 20 108/77 (87) 95 Room Air 10/28/16 00:00 Room Air 10/27/16 23:03 36.9 91 16 133/80 (97) 96 Room Air 10/27/16 19:00 36.7 90 18 131/86 (101) 94 Room Air 10/27/16 17:30 36.6 87 18 110/69 (83) 92 Room Air 10/27/16 16:30 36.5 87 18 115/73 (87) 91 Room Air 10/27/16 16:00 36.5 89 18 112/73 (86) 96 Nasal Cannula 1.0 10/27/16 16:00 96 Nasal Cannula 2.0 10/27/16 15:45 96 Nasal Cannula 2.0 10/27/16 15:16 125/79 10/27/16 15:14 84 16 94 10/27/16 15:14 84 16 10/27/16 15:09 80 16 94 10/27/16 15:09 80 16 10/27/16 15:07 118/75 10/27/16 15:04 82 17 94 10/27/16 15:04 83 17 10/27/16 15:02 121/83 10/27/16 14:59 82 22 10/27/16 14:59 83 22 93 10/27/16 14:59 36.3 10/27/16 14:58 87 23 10/27/16 14:58 89 23 94 10/27/16 14:56 135/88 10/27/16 14:53 80 15 95 10/27/16 14:53 80 15 10/27/16 14:51 138/79 10/27/16 14:48 84 16 10/27/16 14:48 84 16 95 10/27/16 14:47 86 20 94 10/27/16 14:47 86 20 10/27/16 14:46 147/91 10/27/16 14:42 83 15 94 10/27/16 14:42 83 15 10/27/16 14:41 134/89 10/27/16 14:37 82 13 95 10/27/16 14:37 82 13 10/27/16 14:36 141/78 10/27/16 14:33 82 20 97 10/27/16 14:33 82 20 10/27/16 14:31 139/96 10/27/16 14:28 83 15 10/27/16 14:28 83 15 97 10/27/16 14:27 131/99 10/27/16 14:23 82 14 97 10/27/16 14:23 82 14 10/27/16 14:22 86 15 96 10/27/16 14:22 87 15 10/27/16 14:21 158/93 10/27/16 14:17 85 14 96 10/27/16 14:17 85 14 10/27/16 14:16 155/97 10/27/16 14:14 166/89 10/27/16 14:13 159/106 10/27/16 14:12 36.2 86 16 166/84 96 Mask 10 10/27/16 14:12 93 16 10/27/16 14:12 93 16 94 10/27/16 11:05 58 16 119/79 (92) 96 Oxymask 8 Laboratory Results 24 Hours: Test 10/28/16 06:51 Hematocrit 37.6 % Hemoglobin 12.9 g/dL Assessment & Plan Assessment: POD #1, Left reversed TSA, Biceps tenodesis Plan: PT/ OT DVT proph- ASA D/C plans- HOme Sat No formal PT needed, just HEP as instructed. per medicine. Inhouse Planning Pain Management: Oxycontin, Dilaudid, PO Tylenol, Oxy IR DVT Prophylaxis: SCDs, ASA Discharge Planning Discharge Planning: home Pain Management: Oxycontin, PO Tylenol, Oxy IR DVT Prophylaxis: ASA
--- NOTE | 2016-10-28 08:48 | Discharge Instructions ---
Discharge Instructions Date of Service Oct 28, 2016. Admission Reason for Admission: Left Shoulder Rotator Cuff Arthropathy Discharge Discharge Diagnosis / Problem: Left reversed TSA, biceps tenodesis Discharge Goals Goal(s): Improve function Activity Recommendations Activity Limitations: as noted below . Instructions / Follow-Up Instructions / Follow-Up ACTIVITY RECOMMENDATIONS: SELF CARE INSTRUCTIONS AFTER TOTAL SHOULDER ARTHROPLASTY REVERSE A. You may do daily exercises as taught in physical therapy while in hospital. No lifting with the operative arm. B. You are to wear your sling/immobilizer at all times EXCEPT when performing your daily exercises and for hygiene purposes. C. You may perform dry, daily dressing changes. Please keep your incision covered. You may shower 48 hours after surgery. Do not apply soap or any ointment/ lotions directly over incision. Do not soak incision in bath tub/swimming pool. D. You may use ice as needed to operative shoulder. SPECIAL CARE INSTRUCTIONS: VERY IMPORTANT TO READ AND REVIEW A. There are a few signs you need to watch for after you are home. Call [facility] at [phone] if you experience any of the followin. Increased severe shoulder pain. Some pain is expected especially when you exercise. 2. Increased swelling in you shoulder or arm; pain or swelling in either upper extremity. 3. Any fluid drainage from the incision. 4. Shortness of breath or chest pain. B. Please call [facility] at [phone] if you have any questions or concerns about your operation or recovery. C. Call your physician if: 1. Temperature is greater than 101 degrees (F). 2. Pain is not relieved by prescribed pain medications. 3. Increase drainage or redness from incision. 4. Unanswered questions or concerns. FOLLOW UP VISIT: Please call [facility] at [phone] to schedule a follow up appointment with Dr. Frank or his PA in 12-14 days from your surgery date. Current Hospital Diet Patient's current hospital diet: Regular Diet Discharge Diet Recommended Diet: Diabetes Type 2 Diet Procedures Procedures Performed: Left Reverse Total Shoulder Arthroplasty, Uncemented; Biceps Tenodesis Pending Studies Studies pending at discharge: no Laboratory Results Hemoglobin A1c Test 10/21/16 12:25 Range/Units Estimated Average Glucose 128 mg/dl Hemoglobin A1c 6.1 H 4.5-5.6 % Medical Emergencies . Who to Call and When: Medical Emergencies: If at any time you feel your situation is an emergency, please call 911 immediately. . Non-Emergent Contact Non-Emergency issues call your: Primary Care Provider . "Provider Documentation" section prepared by Kristofer Smith. . VTE Core Measure Inpt VTE Proph given/why not?: Other Anticoagulation (asa), SCD's [place] Drug Monitoring Program Search Results: patient reviewed within database, no issues identified
[2016-10-28] MEDS ORDERED: MULTIVITAMIN TAB PO SCH (09:00)
[2016-10-28] MEDS: D5W AND 1/2NSS + 20MEQ KCL 1,000 ML IV SCH (09:54)
[2016-10-28] MEDS: HYDROmorphone INJ 0.5 MG/0.5 ML SYR IV PRN ×3 (13:19→23:25)
[2016-10-28] MEDS: LISINOPRIL 20 MG TAB PO SCH (21:48)
[2016-10-28] MEDS: ALFUZosin TAB 10 MG TAB PO SCH (21:48)
[2016-10-28] MEDS: ASPIRIN 81 MG ECTAB PO SCH (21:49)
[2016-10-28] MEDS: ATORVASTATIN 20 MG TAB PO SCH (21:50)
[2016-10-29] MEDS: ACETAMINOPHEN 500 MG TAB PO SCH (05:47)
[2016-10-29] MEDS: LEVOTHYROXINE 125 MCG TAB PO SCH (05:47)
[2016-10-29 06:31] LABS: HEMATOCRIT 37.4 % (42-52); MEAN CELL VOLUME 91.2 fL (80-100); MEAN CORPUSCULAR HEMOGLOBIN 29.5 pg (25-34); MEAN CORPUSCULAR HGB CONC 32.4 g/dl (32-36); PLATELET COUNT 201 K/uL (130-400); WHITE BLOOD COUNT 10.96 K/uL (4.8-10.8)
[2016-10-29 07:10] VITALS: BP 121/72; PULSE 72; TEMP 37; O2SAT 96
[2016-10-29 07:28] LABS: BUN/CREATININE RATIO 16.5 (10-20); CALCIUM 8.6 mg/dl (8.5-10.1); CREATININE 1.5 mg/dl (0.60-1.40); POTASSIUM 3.9 mmol/L (3.5-5.1)
[2016-10-29] MEDS: OXYCODONE HCL 10 MG TABCR (OXYCONTIN) PO SCH (07:55)
[2016-10-29] MEDS: PANTOprazole SOD 40 MG TAB PO SCH (07:56)
[2016-10-29] MEDS: OXYCODONE HCL IR 5 MG TAB (IMMEDIATE RELEASE) PO PRN ×2 (07:56→14:34)
[2016-10-29] MEDS: MULTIVITAMIN TAB PO SCH (07:57)
[2016-10-29] MEDS: CEROVITE ADV FORMULA TAB PO SCH (07:57)
[2016-10-29] MEDS: METOPROLOL TARTRATE 25 MG TAB PO SCH (07:58)
[2016-10-29] MEDS: DOCUSATE SODIUM 100 MG CAP PO SCH (07:58)
--- NOTE | 2016-10-29 09:16 | Orthopedic Progress Note ---
Orthopedic Progress Note Date of Service Oct 29, 2016. Subjective Post OP Day: 2 Reports: feeling well, Denies: chest pain, SOB, nausea / vomiting, light headedness, calf pain Objective calves soft nontender, N/V intact, dressing C/D/I, A&O x3, toes mobile Date Time Temp Pulse Resp B/P (MAP) Pulse Ox O2 Delivery O2 Flow Rate FiO2 10/29/16 07:10 37.0 72 16 121/72 (88) 96 Room Air 10/28/16 23:33 Room Air 10/28/16 22:57 36.9 71 18 151/79 (103) 96 Room Air 10/28/16 21:43 54 122/79 (93) 10/28/16 15:28 36.5 59 18 145/89 (107) 96 Room Air 10/28/16 15:15 Room Air 10/28/16 12:10 36.6 70 18 108/70 (83) 95 Room Air 10/28/16 11:38 72 97 Laboratory Results 24 Hours: Test 10/29/16 06:01 Hematocrit 37.4 % Hemoglobin 12.1 g/dL Assessment & Plan Assessment: POD #2, Left reversed TSA, Biceps tenodesis Plan: PT/ OT DVT proph- ASA D/C plans- HOme Sat No formal PT needed, just HEP as instructed. per medicine. Inhouse Planning Pain Management: Oxycontin, Dilaudid, PO Tylenol, Oxy IR DVT Prophylaxis: SCDs, ASA Discharge Planning Discharge Planning: home, home with oppt (DC HOME TODAY) Pain Management: Oxycontin, PO Tylenol, Oxy IR DVT Prophylaxis: ASA Discharge Planning Notes: Patient seen and examined, agree with above.
[2016-10-29] MEDS ORDERED: RXC5 PO (09:19)
[2016-10-29] MEDS ORDERED: ONDA8TAB6 PO (09:19)
[2016-10-29] MEDS ORDERED: ACET-24 PO (09:19)
[2016-10-29] MEDS ORDERED: ASPEC81 PO (09:19)
[2016-10-29] MEDS ORDERED: OXYSR10 PO (09:19)
[2016-10-29 11:41] VITALS: BP 121/72; PULSE 72; TEMP 37; O2SAT 96
--- NOTE | 2016-11-09 12:50 | DISCHARGE SUMMARY ---
HISTORY OF PRESENT ILLNESS: This is a 71-year-old male patient of Dr. Frank'chris complaining of chronic left shoulder pain, long-standing progressively getting worse. He has been diagnosed with rotator cuff arthropathy, osteoarthritis and has failed conservative treatment. The patient wishes to proceed with a left reverse total shoulder arthroplasty. PAST MEDICAL HISTORY: Hypertension, hyperlipidemia, BPH, chronic kidney disease, osteoarthritis, diabetes mellitus and hypothyroidism. POSTOPERATIVE COURSE: The patient underwent a left reverse total shoulder arthroplasty, biceps tenodesis on 10/27/2016. Postoperatively he was followed closely with medical consultation, DVT prophylaxis in the form of aspirin, pain control and physical therapy. The patient did well postoperatively and was discharged home on postoperative day #2 with no problems in the hospital. PHYSICAL EXAMINATION: On discharge left shoulder incision was clean, dry and intact. La were intact. Skin edges were approximated well. There was no redness or drainage. Neurologically and neurovascularly he was intact in his left upper extremity. DIAGNOSIS: Status post left reverse total shoulder arthroplasty and biceps tenodesis with a history of hypertension, hyperlipidemia, BPH, osteoarthritis, kidney disease, diabetes mellitus, and hypothyroidism. PLAN: The patient was discharged home with home exercises only. No need for formal physical therapy for 6 weeks postop. He will continue his preadmission medications, deep venous thrombosis prophylaxis on aspirin and pain control. He will follow up as scheduled as an outpatient.
== END 2016-10-29 15:15 | disposition home or self-care (01) | DRG 483 ==
LOC: C.ACU 06:35 → C.3E 10:18 → ENRESERV 15:08
PROVIDERS: ADMIT Orthopaedic Surgery Sports Medicine; ATTEND Orthopaedic Surgery Sports Medicine
PROC: 0RRK00Z Replacement of Left Shoulder Joint with Reverse Ball and Socket Synthetic Substitute, Open Approach (ICD-10-PCS; principal; 2016-10-27 09:15)
PROC: 0LS40ZZ Reposition Left Upper Arm Tendon, Open Approach (ICD-10-PCS; principal; 2016-10-27 09:15)
DX: M12.812 Other specific arthropathies, not elsewhere classified, left shoulder (principal); M75.102 Unspecified rotator cuff tear or rupture of left shoulder, not specified as traumatic; M75.82 Other shoulder lesions, left shoulder; I12.9 Hypertensive chronic kidney disease with stage 1 through stage 4 chronic kidney disease, or unspecified chronic kidney disease; N18.3 Chronic kidney disease, stage 3 (moderate); R73.03 Prediabetes; N40.0 Benign prostatic hyperplasia without lower urinary tract symptoms; E78.5 Hyperlipidemia, unspecified; M15.9 Polyosteoarthritis, unspecified; E66.9 Obesity, unspecified; Z68.31 Body mass index [BMI] 31.0-31.9, adult; Z23 Encounter for immunization; Z87.891 Personal history of nicotine dependence; Z96.653 Presence of artificial knee joint, bilateral; Z79.82 Long term (current) use of aspirin; Z79.891 Long term (current) use of opiate analgesic; Z79.899 Other long term (current) drug therapy